=== PATIENT | female | born 1985 | race Caucasian/White ===

== ENCOUNTER → 2021-03-15 08:31 | Outpatient (BNVA) | payer OTHER, SELFPAY | PROVIDERS: Visit Provider Internal Medicine ==

== ENCOUNTER 2021-05-03 13:21 | Outpatient (REF) | payer OTHER, SELFPAY ==
--- NOTE | ~2021-05-03 | US_ITS ---
EXAMINATION: US THYROID CLINICAL INFORMATION: Nontoxic multinodular goiter. COMPARISON: Ultrasound thyroid soft tissues neck 12/31/2018 and 11/26/2016. TECHNIQUE: Linear transducer grayscale and color Doppler examination with attention to the region of the thyroid. FINDINGS: SIZE: Measurements of the thyroid lobes and nodules are given in sagittal, anteroposterior and transverse dimensions respectively. Right Thyroid Lobe: 5.2 x 0.95 x 1.8 cm, volume 4.5 mL. Previously 5.7 x 0.9 x 1.5 cm, volume 4.0 mL. Parenchyma: The gland echotexture is homogeneous. Thyroid vascularity is normal. Left Thyroid Lobe: 4.5 x 1.0 x 1.3 cm, volume 3.0 mL. Previously 4.8 x 0.9 x 1.3 cm, volume 2.9 mL. Parenchyma: The gland echotexture is homogeneous. Thyroid vascularity is normal. Isthmus: 0.15 cm in maximum AP dimension. Previously 0.15 cm. Estimated total number of nodules greater than or equal to 1 cm: 0. There are multiple colloid cyst. The largest colloid cyst is measured. 1. Location: Right lower pole. Size: 0.53 x 0.44 x 0.31 cm, volume 0.04 mL. Previously: 0.51 x 0.35 x 0.37 cm, volume 0.03 mL. Nodule characteristics: Composition: Cystic(0). ACR TI-RADS total points: 0 ACR TI-RADS category: 1 Significant change in size (>/= 20% in 2 dimensions and minimal increase of 2 mm or 50% or greater increase in volume): Change in features: Change in ACR TI-RADS risk category: 2. Location: Left upper pole. Size: 0.81 x 0.71 x 0.76 cm, volume 0.23 mL. Previously: 0.69 x 0.5 x 0.71 cm, volume 0.13 mL. Nodule characteristics: Composition: Solid/almost completely solid (2). Echogenicity: Isoechoic (1). Shape: Not taller than wide (0). Margins: Smooth (0). Echogenic Foci: None (0). ACR TI-RADS total points: 3 ACR TI-RADS category: 3 Significant change in size (>/= 20% in 2 dimensions and minimal increase of 2 mm or 50% or greater increase in volume): Change in features: Change in ACR TI-RADS risk category: 3. Location: Left lower pole. Size: 0.32 x 0.27 x 0.39 cm, volume 0.02 mL. Previously: 0.29 x 0.22 x 0.25 cm, volume 0.01 mL. Nodule characteristics: Composition: Solid/almost completely solid (2). Echogenicity: Hypoechoic (2). Shape: Not taller than wide (0). Margins: Smooth (0). Echogenic Foci: None (0). ACR TI-RADS total points: 4 ACR TI-RADS category: 4 Significant change in size (>/= 20% in 2 dimensions and minimal increase of 2 mm or 50% or greater increase in volume): Change in features: Change in ACR TI-RADS risk category: NODES: No lymphadenopathy is seen in the tissue surrounding the thyroid gland. US/US thyroid IMPRESSION: Normal-size thyroid gland. Multiple small cystic and solid nodules not appreciably changed. ACR TI-RADS RECOMMENDATION REFERENCE: Ultrasound-guided fine-needle aspiration, followup ultrasound, no further follow up. * TR1 (0 point) and TR 2 (2 points): No FNA or follow up * TR3 (3 points): FNA if more than or equal to 2.5 cm in maximum dimension, followup ultrasound in 1, 3 and 5 years if 1.5 to 2.4 cm in maximum dimension. * TR4 (4-6 points): FNA if more than or equal to 1.5 cm in maximum dimension, followup ultrasound in 1, 2, 3 and 5 years if 1 to 1.4 cm in maximum dimension. * TR5 (more than or equal to 7 points): FNA if more than or equal to 1 cm in maximum dimension, followup ultrasound every year for 5 years if 0.5 to 0.9 cm in maximum dimension. * TR3, TR4 or TR5 nodules that are below the size threshold for follow up receive no follow up.
[2021-05-03 15:35] LABS: Free T4 (Free Thyroxine) 0.82 ng/dL (0.71-1.85); Thyroid Stimulating Hormone 2.01 uIU/mL (0.32-4.0)
== END 2021-05-03 13:22 | disposition home or self-care (01) ==
LOC: HO.US 13:21
PROVIDERS: Visit Provider Internal Medicine
DX: E04.2 Nontoxic multinodular goiter (principal); E55.9 Vitamin D deficiency, unspecified
CPT/HCPCS: 36415; 76536; 82306; 84439; 84443

== ENCOUNTER 2021-07-10 08:45 | Outpatient (RCR) | payer OTHER, SELFPAY ==
[2021-06-08 13:07] VITALS: BMI 23.0
--- NOTE | 2021-06-08 13:28 | PC.ADMIT ---
Patient is a 35 year old female who self referred to the PHP program on the advice of her former prescriber d/t an increase in depression symptoms with passive SI and anxiety with panic attacks. Patient denied plan or intent to harm/kill self. 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 Patient described debilitating anxiety attacks which have increased over a month ago which interfere with work and activities of daily living including difficulty leaving the house to do errands. Patient reports decreased sleep often waking multiple times a night and decrease in appetite r/t anxiety. Patient described experiencing episodes of tachycardia, sweating, shaking, numbness in hands and feet, tremulousness, and SOB with feeling light headed. Patient also suffers from ruminating thoughts about the, what if's . She is often fatiqued and naps during the day as a result. Not able to function in her day to day life. Patient is alert and oriented x4. Calm and cooperative. Presents with depressed mood anxious affect. Denied SI. Medications reconciled with patient and patient's pharmacy. Patient reported taking medications as prescribed however stated she is taking cutting the Clonazepam into quarters taking 0.25 mg TID instead of taking prescription 1 mg BID prn. Katrin Peng Np prescriber aware. Patient also did not take xanax that was prescribed in December 2020 as she did not want to take 2 benzodiazapines however patient stated she spoke to Katrin the prescriber and she wants patient to start taking. Patient reports she has a full prescription of xanax #30 tabs.
--- NOTE | 2021-06-08 16:17 | PC.NURSE ---
Case opened in treatment team
--- NOTE | 2021-06-08 16:26 | HO.PS.ADMBH ---
[facility] Date of Service: 06/08/21 Chief Complaint: Panic D/o, Depression, Generalized Anxiety D/o Sources of Information: patient interviewed, chart reviewed and crisis/core team assessment reviewed [facility] Guardianship: No Medical Problems Affecting Mental Status: No Narrative: Ms. Arguelles is a 35-year-old female, self-referred to [facility] for worsening mood dysregulation, depression, anxiety. Client reports feeling helpless, hopeless. She reports that she has a longstanding history of anxiety, depression, panic disorder. She reports that she has had escalating symptoms over the past 1 and half months. She states that she has been unable to eat or moved, go to work, attend to ADLs. Describes experiencing frequent panic attacks, dissociative episodes. Denies any type of thought of harm to self or others, no SI. Client was raised by both parents, has a younger brother. Describes family as supportive. Met all developmental milestones as expected, was in a gifted program throughout school. Obtained GED, after dropping out due to anxiety and depression. Received bachelor's at [employer]. 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 Client reports that she began experiencing symptoms of anxiety and depression around age 12. She began treatment at that time, with a therapist and a psychiatric provider. She states that she had been placed on psychiatric medications but that her mother later took her off the meds due to side effects. She denies any periods of time during her life where she has experienced symptoms of jena or hypomania. She does report that she has had alternate periods of time in her life where she requires medication and therapy, and then is able to function well for a long time without either. She states though as she ages, she is in noticing more frequent episodes where she requires medication and therapy. Past medication trials include Effexor, zyprexa, Viibryd, Zoloft. She is hoping to gain healthy coping skills while in [facility], and a learn how to apply them directly to her daily life. Past Psychiatric History: [facility] 2006 Wing Has current providers at [facility] in [place]. Medical Evaluation Reviewed: No (none available at this time) [facility] Medical History Multinodular thyroid Vitamin D deficiency Narrative: Reports thyroid is being monitored medically. Surgical History No pertinent past surgical history Family History: Maternal grandfather: anxiety, PTSD Maternal uncle: anxiety Paternal grandfather: alcohol use disorder No suicidality in family. Social History: , works as EMT. Substance History: Reports use of CBD, with no THC. Remote history of drinking, reports was never problematic, last drink 3 years ago. Trauma History: Reports that she and therapist have discussed panic attacks as being traumatic. Does not report any other trauma history at this time. Diagnostics Vital Signs (24Hr): Body Mass Index 23.0 Meds/Allergies Allergies Allergies Allergy/AdvReac Type Severity Reaction Status Date / Time No Known Allergies Allergy Verified 03/15/21 09:21 Mental Status Exam Mental Status Exam Narrative: Well-developed, well-nourished female, in NAD. Appropriate grooming, appropriately dressed. Sitting up, fully attentive and participating during interview. No involuntary movements noted, motor activity calm, posture within normal limits. Ambulation not observed. Patient Appearance: Well Grooomed and Appropriate Patient Orientation: Person, Place, Time and Situation Level of Consciousness: Awake, Appropriate and Alert Patient Behavior: Appropriate, Cooperative, Anxious and Good Eye Contact Mood Description: Appropriate and Anxious Affect Description: Appropriate, Depressed and Anxious Patient Cognition Impaired: No Ability to Follow Directions: Excellent Speech Pattern: Clear, Appropriate, Spontaneous Speech and Coherent Memory Description: Intact Hallucinations: None Delusions: Not Present Perceptual Disturbances: Depersonalization Thought Process: Intact and Rumination (focused on anxiety symptoms, impending doom/panic attacks) Thought Content: positive for Intact, positive for Goal Oriented and positive for Linear Depressive Symptoms: Increased Anxiety, Difficulty Sleeping, Crying Spells, Loss of Int. in Activity, Hopelessness, Unhappiness, Increased Fatigue, Low Self Esteem, Loss of Energy and Difficulty Concentrating Judgement: Fair Telehealth Telehealth Location of provider rendering services: practice address Location of patient: address on file Patient Identification confirmed using: Name, : Yes Telehealth method: video Patient verbally consented to treatment: Yes Patient verbally consented to billing insurance company: Yes Patient informed of any privacy concerns related to visit: Yes Time spent with patient (mins): 45 Assessment & Plan Assessment & Plan (1) Major depressive disorder, recurrent severe without psychotic features: Status: Acute Code(s): F33.2 - Major depressive disorder, recurrent severe without psychotic features Assessment and Plan: Client reports she is currently taking Lexapro 10 mg. Reports that she had tried a higher dose, but that it made her feel more anxiety. States she is not sure she really gave medication a chance, or if she focused on side effects as part of her anxiety. She reports she is taking Lamictal 75 mg. Reports that was increased to 100 mg, and that she took for 4 days, approximately 3 months ago. She states that she did not like the effect, and that she dropped down to 75 mg daily. A discussion was held regarding medications and therapeutic doses. She is willing at this time to try a small increase of Lexapro. (2) YULI (generalized anxiety disorder): Status: Acute Code(s): F41.1 - Generalized anxiety disorder Assessment and Plan: Client receives Klonopin with positive affect for anxiety. She also has a p.r.n. Xanax, which she has not used in several months. We discussed using this short-term, so as to combat the initial feelings of anxiety that she experiences when increasing medication doses. She stated that she was willing to try this. (3) Panic disorder: Status: Acute Code(s): F41.0 - Panic disorder [episodic paroxysmal anxiety] Assessment and Plan: Client reports that she continues to experience panic disorder, but feels that being in groups today was helpful, as she was able to hear other people describes situations where as she now realizes that she is not alone in struggling with these issues. Assessment and Plan: 1. Increase Lexapro to 12.5 mg daily. 2. Continue other medications as prescribed. 3. Follow-up with client as per protocol. Patient educated on: diagnosis, medication risk/benefits and therapeutic strategies Informed Consent: understands Reason for continued partial hosp. stay Substantial Risk for: inability to function and med/psych decompensation Certification I certify that partial hospital treatment is medically necessary due to the symptoms and problems resulting from the patient's mental illness and the failure to treat the patient at the partial hospital level of care would likely result in the patient requiring inpatient psychiatric care which could not be prevented at a less intensive level of care.
--- NOTE | 2021-06-13 13:49 | HO.PHPPROGNO ---
Subjective Subjective Date of Service: 06/13/21 Reason For Visit: Panic D/o, Depression, Generalized Anxiety D/o Interim History: Patient seen and discussed with team. Patient evaluated this morning and upon interview she reports on the increased lexapro she felt drunk however utilized xanax PRN and says it knocked me out. She wants to continue on trial of increased lexapro. Reports she has zero energy, zero motivation. Says she feels like crying, taking a shower is impossible. Discussed OCD urges to clean but has feelings of shame and guilt that she is not able to due to avolition and anhedonia. Pt reports she feels so hopeless about everything, stuck, and worries nothing is going is gonna work for her depression. Reports low activity level, doing nothing, can barely leave my house. Says her moods are up and down throughout the day. Feels CBD has been very helpful for stress management. Reports low appetite, has to force myself to eat, feels a knot in my stomach 11/03. Per Suha, due to anxiety I live in my head 99 percent of time, I'm never present. Pt did well with articulating her sx of anxiety and depression. She is insightful but has difficulty accessing her coping skills when she is feeling distressed. She endorses vegetative sx of depression. Denies SI and says she feels safe. Has been participating in group. Medication Compliance: Yes Side effects from medications: No Attending Groups: Yes Review of Systems Acute medical concerns: No Medical Review of Systems: unchanged Mental Status Exam Mental Status Exam Narrative: Well-developed, well-nourished female, in NAD.? Appropriate grooming, appropriately dressed.? Sitting up, fully attentive and participating during interview.? No involuntary movements noted, motor activity calm, posture within normal limits.? Ambulation not observed. Patient Appearance:?Well Grooomed and Appropriate Patient Orientation:?Person, Place, Time and Situation Level of Consciousness:?Awake, Appropriate and Alert Patient Behavior:?Appropriate, Cooperative, Anxious and Good Eye Contact Mood Description:?Appropriate and Anxious Affect Description:?Appropriate, Depressed and Anxious Patient Cognition Impaired:?No Ability to Follow Directions:?Excellent Speech Pattern:?Clear, Appropriate, Spontaneous Speech and Coherent Memory Description:?Intact Hallucinations:?None Delusions:?Not Present Perceptual Disturbances:?Depersonalization Thought Process:?Intact and Rumination (focused on anxiety symptoms, impending doom/panic attacks) Thought Content:?positive for Intact, positive for Goal Oriented and positive for Linear Depressive Symptoms:?Increased Anxiety, Difficulty Sleeping, Crying Spells, Loss of Int. in Activity, Hopelessness, Unhappiness, Increased Fatigue, Low Self Esteem, Loss of Energy and Difficulty Concentrating Judgement:?Fair Diagnostics Vital Signs (24Hr): Body Mass Index 23.0 Assessment & Plan Assessment & Plan (1) Major depressive disorder, recurrent severe without psychotic features: Status: Acute Code(s): F33.2 - Major depressive disorder, recurrent severe without psychotic features (2) YULI (generalized anxiety disorder): Status: Acute Code(s): F41.1 - Generalized anxiety disorder (3) Panic disorder: Status: Acute Code(s): F41.0 - Panic disorder [episodic paroxysmal anxiety] Assessment and Plan: Will continue on increased lexapro dose of 12.5 mg to target sx of depression and anxiety. Will trial risperdal 0.25 mg BID to target perseverative thinking, OCD features, mood lability, as atypical antipsychotics can be useful for treatment refractory anxiety sx and mood stability and risperdal may help with low appetite and is less sedating. Reviewed risks and benefits with pt including increased prolactin level and metbaolic SE and QTc prolongation. Monitor response to medications. Patient seen. Chart reviewed. Certification I certify that partial hospital treatment is medically necessary due to the symptoms and problems resulting from the patient's mental illness and the failure to treat the patient at the partial hospital level of care would likely result in the patient requiring inpatient psychiatric care which could not be prevented at a less intensive level of care. I spent minutes with the patient and/or on the patient floor today, greater than?50% of which was spent counseling/coordinating care. Discharge Plan Discharge Attending provider: Cole Conteh Medications: New escitalopram oxalate [Lexapro] 5 mg tablet 5 mg PO DAILY Qty: 7 RF: 0 risperidone [Risperdal] 0.5 mg tablet 0.25 mg PO BID Qty: 14 RF: 0 No Action lamotrigine 150 mg Tablet 75 mg PO BEDTIME RF: 0 clonazepam 1 mg tablet 1 mg PO BID PRN (Reason: Anxiety) RF: 0 escitalopram oxalate 10 mg tablet 10 mg PO BEDTIME RF: 0 alprazolam 0.5 mg tablet 0.5 mg PO DAILY PRN (Reason: Anxiety) RF: 0
--- NOTE | 2021-06-14 16:08 | HO.PHPPROGNO ---
Subjective Subjective Date of Service: 06/14/21 Reason For Visit: Panic D/o, Depression, Generalized Anxiety D/o Guardianship: No Medical Problems Affecting Mental Status: No Interim History: Suha reports that the increase in Lexapro ?has not really done anything ?. She reports that prescriber yesterday recommended starting Risperdal, but that she is too fearful to begin this medication, as she is concerned about side effects. She then explained that she is afraid of starting anything new. Did consider yesterday coming to ED for crisis evaluation for possible inpatient level of care, today does not believe she needs this at this time. Denies any type of SI, HI, AH, VH. Would like to have medication change at this time. Medication Compliance: Intermittent Side effects from medications: No Attending Groups: Yes Review of Systems Acute medical concerns: No Medical Review of Systems: unchanged Review of Systems Review of Systems Yes all other systems are reviewed and are negative Mental Status Exam Mental Status Exam Narrative: Well-developed, well-nourished female, in NAD. Fully alert and oriented x4. Speech clear, normal rate, volume, rhythm. Well groomed, appropriately dressed. No involuntary movements noted, motor activity calm, posture within normal limits. Manner and behavior were calm, cooperative. Anxious mood and affect, tearful at times. Thought process associations goal directed. Thought content was normal although ruminating, linear, future oriented. No evidence of delusional thoughts or hallucinations, did not appear to be responding to any type of internal stimuli. Cognition and memory appear intact. Denies any type of thought of harm to self or others. Judgment and insight fair. Ambulation not observed. Diagnostics Vital Signs (24Hr): Body Mass Index 23.0 Assessment & Plan Assessment & Plan (1) YULI (generalized anxiety disorder): Status: Acute Code(s): F41.1 - Generalized anxiety disorder Assessment and Plan: Client unwilling to take risperidone at this time. States she is not opposed to inpatient, but that she would prefer to try a med change prior to resorting to an inpatient level of care stay. States she does not feel the Lexapro is working, even with the increased dose. Would prefer to return to Zoloft. Discussed medication switch, risks/benefits, potential side effects. (2) Major depressive disorder, recurrent severe without psychotic features: Status: Acute Code(s): F33.2 - Major depressive disorder, recurrent severe without psychotic features Assessment and Plan: Client does report that she continues with depressive symptoms, mood dysregulation. She states she believes a lot of her symptoms currently are stemming from being isolated. Discussed increase Lamictal to 100 mg daily x2 weeks. She was in agreement with this plan. Denies any type of thoughts of harm to self or others, no safety concern at this time. (3) Panic disorder: Status: Acute Code(s): F41.0 - Panic disorder [episodic paroxysmal anxiety] Assessment and Plan: 1. Discontinue risperidone. 2. Discontinue Lexapro. 3. Start sertraline 100 mg daily. 4. Increase Lamictal to 100 mg daily times 14 days. 5. Follow-up as per protocol. Patient educated on: diagnosis, medication risk/benefits and therapeutic strategies Informed Consent: understands Reason for contiued partial hosp. stay Substantial Risk for: inability to function, rapid decompensation and med/psych decompensation Certification I certify that partial hospital treatment is medically necessary due to the symptoms and problems resulting from the patient's mental illness and the failure to treat the patient at the partial hospital level of care would likely result in the patient requiring inpatient psychiatric care which could not be prevented at a less intensive level of care. I spent minutes with the patient and/or on the patient floor today, greater than?50% of which was spent counseling/coordinating care. Discharge Plan Discharge Attending provider: Cole Conteh Medications: New sertraline [Zoloft] 100 mg tablet 100 mg PO DAILY 14 Days Qty: 14 RF: 0 lamotrigine [Lamictal] 25 mg tablet 25 mg PO DAILY 14 Days Qty: 14 RF: 0 Discontinued escitalopram oxalate 10 mg tablet 10 mg PO BEDTIME RF: 0 No Action lamotrigine 150 mg Tablet 75 mg PO BEDTIME RF: 0 clonazepam 1 mg tablet 1 mg PO BID PRN (Reason: Anxiety) RF: 0 alprazolam 0.5 mg tablet 0.5 mg PO DAILY PRN (Reason: Anxiety) RF: 0 Telehealth Telehealth Location of provider rendering services: practice address Location of patient: address on file Patient Identification confirmed using: Name, : Yes Telehealth method: video Patient verbally consented to treatment: Yes Patient verbally consented to billing insurance company: Yes Patient informed of any privacy concerns related to visit: Yes Time spent with patient (mins): 20
--- NOTE | 2021-06-20 15:40 | HO.PHPPROGNO ---
Subjective Subjective Date of Service: 06/20/21 Reason For Visit: Panic D/o, Depression, Generalized Anxiety D/o Interim History: I evaluated the pt this morning and upon interview she reports she has been on 100 mg of zoloft since last session and that I know it doesnt work that fast, but she is feeling better, thinks its more because i feel like i have a direction now. She continues to endorse anxious, obsessive thoughts, worries about feeling terrible again despite feeling better. Has benefited from group therapy, finds it comforting to know there are other people struggling as much as me and likes having structure/ routine. Still has difficulty falling asleep, stays up watching tv/ looking at phone. Energy is better. Wants to be in a better head space prior to starting risperdal. Discussed DBT therapy, as she says she wants to be able to feel my feelings but has hx of avoidant attachment/ coping strategies and withdrawal.? Mental Status Exam Mental Status Exam Narrative: Well-developed, well-nourished female, in NAD.? Fully alert and oriented x4.? Speech clear, normal rate, volume, rhythm. ? Well groomed, appropriately dressed.? No involuntary movements noted, motor activity calm, posture within normal limits.? Manner and? behavior were calm, cooperative.? Mood is better, affect is anxious.? Thought process associations goal directed.? Thought content was normal although ruminating, linear, future oriented.? No evidence of delusional thoughts or hallucinations, did not appear to be responding to any type of internal stimuli.? Cognition and memory appear intact.? Denies any type of thought of harm to self or others.? Judgment and insight fair.? Ambulation not observed. Diagnostics Vital Signs (24Hr): Body Mass Index 23.0 Assessment & Plan Assessment & Plan (1) Major depressive disorder, recurrent severe without psychotic features: Status: Acute Code(s): F33.2 - Major depressive disorder, recurrent severe without psychotic features Assessment and Plan: Client reports improvement in depressive sx on zoloft, may be placebo, denies activating SE. Will increase Lamictal to 100 mg daily x2 weeks, as she has not done this yet, will monitor for rash/ SJS. Denies any type of thoughts of harm to self or others, no safety concern at this time. (2) YULI (generalized anxiety disorder): Status: Acute Code(s): F41.1 - Generalized anxiety disorder Assessment and Plan: Will continue trial on Zoloft.?Discussed trialing risperdal 0.25 mg BID for obsessive thoughts but pt does not want to trial a new medication at this time. Will f/u with OP provider. (3) Panic disorder: Status: Acute Code(s): F41.0 - Panic disorder [episodic paroxysmal anxiety] Assessment and Plan: 1. continue sertraline 100 mg daily. 2. Increase Lamictal to 100 mg daily times 14 days. 3. Follow-up as per protocol. Certification I certify that partial hospital treatment is medically necessary due to the symptoms and problems resulting from the patient's mental illness and the failure to treat the patient at the partial hospital level of care would likely result in the patient requiring inpatient psychiatric care which could not be prevented at a less intensive level of care. I spent minutes with the patient and/or on the patient floor today, greater than?50% of which was spent counseling/coordinating care. Discharge Plan Discharge Attending provider: Cole Conteh Medications: New sertraline [Zoloft] 100 mg tablet 100 mg PO DAILY 14 Days Qty: 14 RF: 0 lamotrigine [Lamictal] 25 mg tablet 25 mg PO DAILY 14 Days Qty: 14 RF: 0 Discontinued escitalopram oxalate 10 mg tablet 10 mg PO BEDTIME RF: 0 No Action lamotrigine 150 mg Tablet 75 mg PO BEDTIME RF: 0 clonazepam 1 mg tablet 1 mg PO BID PRN (Reason: Anxiety) RF: 0 alprazolam 0.5 mg tablet 0.5 mg PO DAILY PRN (Reason: Anxiety) RF: 0
--- NOTE | 2021-06-21 16:32 | PC.NURSE ---
Pt expressed possible interest in a weekly DBT coping skills groups. She is not interested in a group at [facility]. I called FIONA Lew, DBT coordinator at [facility]. They are not taking referrals as the wait list got too big.
--- NOTE | 2021-06-27 14:30 | HO.PHPPROGNO ---
Subjective Subjective Date of Service: 06/27/21 Reason For Visit: Panic D/o, Depression, Generalized Anxiety D/o Interim History: Patient seen and discussed with team. Patient evaluated this morning and upon interview she reports she has been feeling worse since increasing lamictal to 100 mg. She had been taking 87.5 total and was feeling fine, no side effects, but last night took 100 mg and woke up this morning and feels she has a mental block. Also reports blurred vision, increased anxiety, and feeling shaky. She says since then she was able to utilize breathing and therapeutic tools to alleviate anxiety sx, however continues to feel blurred vision and shaky. Denies issues with blood sugar and says her sleep has been good. Has hx of med sensitivity and in the past was unable to tolerate lamictal dose increase to 100 mg in OP setting. Pt is still interested in DBT. Per Suha, she was feeling a lot better than i had been on the most recent med changes prior to lamictal going up to 100 mg. Says she has not had any real lows and her anxiety is back to baseline. She currently feels safe. Medication Compliance: Yes Side effects from medications: Yes Attending Groups: Yes Review of Systems Acute medical concerns: No Medical Review of Systems: unchanged Mental Status Exam Mental Status Exam Narrative: Well-developed, well-nourished female, in NAD.? Fully alert and oriented x4.? Speech clear, normal rate, volume, rhythm. ? Well groomed, appropriately dressed.? No involuntary movements noted, motor activity calm, posture within normal limits.? Manner and? behavior were calm, cooperative.? Mood is worried, affect is anxious.? Thought process associations goal directed.? Thought content was normal although ruminating, linear, future oriented.? No evidence of delusional thoughts or hallucinations, did not appear to be responding to any type of internal stimuli.? Cognition and memory appear intact.? Denies any type of thought of harm to self or others.? Judgment and insight fair.? Ambulation not observed. Diagnostics Vital Signs (24Hr): Body Mass Index 23.0 Assessment & Plan Assessment & Plan (1) Major depressive disorder, recurrent severe without psychotic features: Status: Acute Code(s): F33.2 - Major depressive disorder, recurrent severe without psychotic features Assessment and Plan: Client reports improvement in depressive sx on zoloft 100 mg. Reports SE on Lamictal to 100 mg, denies rash/ SJS but has noticed blurred vision and feeling shaky. Would like to lower dose back to 87.5 mg due to reported benefit at this dose. Denies any type of thoughts of harm to self or others, no safety concern at this time. (2) YULI (generalized anxiety disorder): Status: Acute Code(s): F41.1 - Generalized anxiety disorder Assessment and Plan: Will continue trial on Zoloft. Discussed trialing risperdal 0.25 mg BID for obsessive thoughts but pt does not want to trial a new medication at this time. Will f/u with OP provider. (3) Panic disorder: Status: Acute Code(s): F41.0 - Panic disorder [episodic paroxysmal anxiety] (4) Vitamin D deficiency: Status: Acute Code(s): E55.9 - Vitamin D deficiency, unspecified (5) Multinodular thyroid: Status: Acute Code(s): E04.2 - Nontoxic multinodular goiter Assessment and Plan: 1. continue sertraline 100 mg daily. 2. Decrease Lamictal to 87.5 mg daily. 3. Follow-up as per protocol. Patient educated on: medication risk/benefits and therapeutic strategies Certification I certify that partial hospital treatment is medically necessary due to the symptoms and problems resulting from the patient's mental illness and the failure to treat the patient at the partial hospital level of care would likely result in the patient requiring inpatient psychiatric care which could not be prevented at a less intensive level of care. I spent minutes with the patient and/or on the patient floor today, greater than?50% of which was spent counseling/coordinating care. Discharge Plan Discharge Attending provider: Cole Conteh Medications: Continued sertraline [Zoloft] 100 mg tablet 100 mg PO DAILY 30 Days Qty: 30 RF: 1 lamotrigine 150 mg Tablet 75 mg PO BEDTIME 30 Days Qty: 15 RF: 1 Changed lamotrigine [Lamictal] 25 mg tablet 12.5 mg PO DAILY 30 Days Qty: 15 RF: 1 Discontinued escitalopram oxalate 10 mg tablet 10 mg PO BEDTIME RF: 0 No Action clonazepam 1 mg tablet 1 mg PO BID PRN (Reason: Anxiety) RF: 0 alprazolam 0.5 mg tablet 0.5 mg PO DAILY PRN (Reason: Anxiety) RF: 0
--- NOTE | 2021-07-03 16:01 | PC.NURSE ---
after inquiring about several more DBT programs (Jasmin Uriarte, [facility] [place]) and finding no one accepting new clients, I spoke to pt and she has reconsidered DBT at [facility]. Mavis Mccarthy said they are accepting clients. I emailed Mavis Mccarthy and sent a referral form. I then called and spoke to pt. She feels very much unable to return to work due to symptoms and is quite upset about this. She is concerned about daily structure. We discussed [facility]'s day Treatment program (or whatever it is currently called - it's one group per day). Pt is interested and I said I would place a referral if possible.
--- NOTE | 2021-07-04 15:06 | PC.NURSE ---
I called and MILLY Sylvester at [facility]s Day Treatment program asking to refer pt.
--- NOTE | 2021-07-04 15:06 | PC.NURSE ---
As I haven't heard back from Nga, I called and spoke to Central Registration at [facility]. I was informed that they are not currently accepting clients in their program. I also emailed Angela Salazar who works in day treatment at [facility] to make sure this is true (as its no longer called Day Treatment)
--- NOTE | 2021-07-05 13:33 | HO.PHPPROGNO ---
Subjective Subjective Date of Service: 07/05/21 Reason For Visit: Panic D/o, Depression, Generalized Anxiety D/o Guardianship: No Medical Problems Affecting Mental Status: No Interim History: Suha reports feeling that today is actually pretty good . Reports that overall she feels her depressive symptoms have improved since she began PHP. Reports however that her anxiety symptoms have not improved. Reports she has not been taking the p.r.n. Xanax, as she feels it makes her too tired. Reports finding groups helpful. Denies any thought of harm to self or others, no safety concern at this time. Medication Compliance: Intermittent Side effects from medications: Yes (xanax, feeling tired.) Attending Groups: Yes Review of Systems Acute medical concerns: No Medical Review of Systems: unchanged Mental Status Exam Mental Status Exam Narrative: Well-developed, well-nourished female, in NAD.? Fully alert and oriented x4.? Speech clear, normal rate, volume, rhythm. ? Well groomed, appropriately dressed.? No involuntary movements noted, motor activity calm, posture within normal limits.? Manner and? behavior were calm, cooperative.? Mood is decent today, affect is anxious.? Thought process associations goal directed.? Thought content was normal although ruminating regarding medications and side effects, ongoing anxiety, work, linear, future oriented.? No evidence of delusional thoughts or hallucinations, did not appear to be responding to any type of internal stimuli.? Denies any episodes of dissacociation, although reports vivid dreams. Cognition and memory appear intact.? Denies any type of thought of harm to self or others.? Judgment and insight fair.? Ambulation not observed. Diagnostics Vital Signs (24Hr): Body Mass Index 23.0 Assessment & Plan Assessment & Plan (1) YULI (generalized anxiety disorder): Status: Acute Code(s): F41.1 - Generalized anxiety disorder Assessment and Plan: The client reports feeling little to no improvement regarding levels of anxiety. Reports she is taking Klonopin as prescribed, but is not taking the Xanax, as it makes her tired. Discussed cutting tab in half, and then in quarters. She states she is already doing this but that it still makes her feel too tired. Discussed alternative ways to help reduce anxiety. She reports she feels the ongoing anxious feelings are due to program winding down, and that she is focused on concern that she will not be able to return to work and that she will lack structure in her day, which will lead to further anxiety and depressive symptoms. Reframing thoughts, projection discussed. (2) Major depressive disorder, recurrent severe without psychotic features: Status: Acute Code(s): F33.2 - Major depressive disorder, recurrent severe without psychotic features Assessment and Plan: Client reports feeling better since lowering Lamictal dose from 100 mg to 87.5. Feels that this is the appropriate dose and plans to remain on it for the time being. Reports that she continues taking Zoloft 100 mg, satisfied with this dose at this time. (3) Panic disorder: Status: Acute Code(s): F41.0 - Panic disorder [episodic paroxysmal anxiety] Assessment and Plan: 1. Client encouraged to utilize p.r.n. Xanax for episodes of anxiety. 2. Continue all medications as prescribed. 3. Follow-up as per protocol. Patient educated on: diagnosis, medication risk/benefits and therapeutic strategies Informed Consent: understands Reason for contiued partial hosp. stay Substantial Risk for: inability to function and med/psych decompensation Certification I certify that partial hospital treatment is medically necessary due to the symptoms and problems resulting from the patient's mental illness and the failure to treat the patient at the partial hospital level of care would likely result in the patient requiring inpatient psychiatric care which could not be prevented at a less intensive level of care. I spent minutes with the patient and/or on the patient floor today, greater than?50% of which was spent counseling/coordinating care. Discharge Plan Discharge Attending provider: Cole Conteh Medications: Continued sertraline [Zoloft] 100 mg tablet 100 mg PO DAILY 30 Days Qty: 30 RF: 1 lamotrigine 150 mg Tablet 75 mg PO BEDTIME 30 Days Qty: 15 RF: 1 Changed lamotrigine [Lamictal] 25 mg tablet 12.5 mg PO DAILY 30 Days Qty: 15 RF: 1 Discontinued escitalopram oxalate 10 mg tablet 10 mg PO BEDTIME RF: 0 No Action clonazepam 1 mg tablet 1 mg PO BID PRN (Reason: Anxiety) RF: 0 alprazolam 0.5 mg tablet 0.5 mg PO DAILY PRN (Reason: Anxiety) RF: 0 Telehealth Telehealth Location of provider rendering services: practice address Location of patient: address on file Patient Identification confirmed using: Name, : Yes Telehealth method: video Patient verbally consented to treatment: Yes Patient verbally consented to billing insurance company: Yes Patient informed of any privacy concerns related to visit: Yes Time spent with patient (mins): 15
--- NOTE | 2021-07-05 16:18 | PC.NURSE ---
I received a message back from Nga at [facility] and called and spoke with her. The program that was Day Treatment is now called the [place] [facility] . Nga said they will take new clients, despite what central registration said. She saw that Suha is already scheduled to see the med provider by the name of Gennaro, and that she was referred by Charo Strickland APRN, Suha's former med provider. Nga said Suha will need an assessment for services in able to start the process to attend the comprehensive group program. I called and spoke to Suha, and she was pleased. I also left a message for Charo Strickland APRN, asking if I ought to put in a referral to [facility] for Suha, as Suha indicated that Charo has a specific therapist in mind for her to see and I didn't want to disrupt that process.
--- NOTE | 2021-07-10 14:42 | PC.NURSE ---
Addendum entered by Mitra Mendoza 07/10/21 14:48: Melani Torres's number is [phone] Original Note: I called Central Intake, and they were not able to place a referral for Pt to attend the [facility] group program, but said they would call me back and let me know when this can happen. I was told that the program is new to them, and that they don't know how the referral process works. I called Melani Torres at [facility], as Charo Strickland APRN said she is the one helping pt to find a DBT therapist. (I also emailed her last and have not heard back). Melani said she will facilitate the referral for pt to get into the [facility] group Treatment Program. She said she would contact staff at [facility] for this, and will coordinate this referral with Pt's referral for DBT.
--- NOTE | 2021-07-10 15:57 | PC.NURSE ---
I called and LM for pt's therapist, Vito Crespo. I informed him of pt's discharge today from [facility].
--- NOTE | 2021-07-11 10:49 | PC.NURSE ---
Discharge Note: Patient was discharged on 07/10/2021. Discharge routine. Patient attended 12 days of PHP and 10 days IOP. Patient in agreement with discharge plan and states understanding including discharge medications. Patient denies SI. Patient has appointment for DBT group on 07/17/21 at [facility]. Intake with med provider on 07/18/21 at [facility]. Appointment with Vito Crespo is pending week of 07/16/21. Melani Torres, senior qa analyst is coordinating a referral for [facility]. Patient reports understanding of discharge appointments. Discharge medication list faxed to PCP at [facility] and Psychopharmacology Prescriber, Tiara Ruiz NP.
== END 2021-07-11 07:14 | disposition home or self-care (01) ==
LOC: HO.PHPA 08:45
PROVIDERS: Visit Provider Psychiatry & Neurology Psychiatry
DX: F33.2 Major depressive disorder, recurrent severe without psychotic features (principal); F41.1 Generalized anxiety disorder; F41.0 Panic disorder [episodic paroxysmal anxiety]; Z79.899 Other long term (current) drug therapy
CPT/HCPCS: 90791; 90853

== ENCOUNTER 2022-03-07 08:57 | Outpatient (REF) | payer OTHER, SELFPAY ==
--- NOTE | ~2022-03-07 | US_ITS ---
EXAMINATION: US THYROID CLINICAL INFORMATION: Nontoxic multinodular goiter. COMPARISON: None TECHNIQUE: Linear transducer grayscale and color Doppler examination with attention to the region of the thyroid. FINDINGS: SIZE: Measurements of the thyroid lobes and nodules are given in sagittal, anteroposterior and transverse dimensions respectively. Right Thyroid Lobe: 5.5 x 1.2 x 1.4 cm, volume 4.9 mL. Previously measured 5.2 x 0.95 x 1.8 cm and volume 4.5 mL. Parenchyma: The gland echotexture is heterogeneous. Thyroid vascularity is normal. Left Thyroid Lobe: 5.0 x 1.1 x 1.1 cm, volume 3.1 mL. Parenchyma: The gland echotexture is heterogeneous. Thyroid vascularity is normal. Previously measured 4.5 x 1.5 x 1.3 cm and volume 3.0 mL Isthmus: 0.21 cm in maximum AP dimension. Previously measured 0.15 cm. Estimated total number of nodules greater than or equal to 1 cm: none. Brush Cutter nodules are described as follows: 1. Location: Right lower pole. Size: 0.55 or 0.50, 0.32 cm, volume 0.05 mL. Previously measured 0.53 x 0.44 x 0.36 cm and volume 0.04 mL. Nodule characteristics: Composition: Cystic(0). Echogenicity: Anechoic (0). Shape: Round Margins: Smooth (0). Echogenic Foci: None (0). ACR TI-RADS total points: 0 ACR TI-RADS category: 1 2. Location: Right upper pole. Size: 0.42 x 0.20 x 0.40 cm, volume 0.2 mL. Not seen previously. Nodule characteristics: Composition: Cystic(0). Echogenicity: Anechoic (0). Shape: Round Margins: Smooth (0). Echogenic Foci: None (0). ACR TI-RADS total points: 0 ACR TI-RADS category: 1 3. Location: Left lower pole. Size: 0.61 x 0.31 x 0.44 cm, volume 0.04 mL. Previously measured 0.32 x 0.27 x 0.40 cm and volume 0.02 mL. Nodule characteristics: Composition: Spongiform (0). Echogenicity: Isoechoic (1). Shape: Round Margins: Smooth (0). Echogenic Foci: None (0). ACR TI-RADS total points: 0 ACR TI-RADS category: 1 4. Location: Lower mid pole. Size: 1.0 x 0.83 x 0.84 cm, volume 0.35 mL. Previously measured 0.81 x 0.71 x 0.76 cm and volume 0.23 mL. Nodule characteristics: Composition: Solid (2). Echogenicity: Hypoechoic Shape: Wider Margins: Smooth (0). Echogenic Foci: None (0). ACR TI-RADS total points: 4 ACR TI-RADS category: 4 NODES: No lymphadenopathy is seen in the tissue surrounding the thyroid gland. US/US thyroid IMPRESSION: Small stable thyroid nodules in a normal-sized thyroid gland. There are cysts visualized in the right lobe. ACR TI-RADS RECOMMENDATION REFERENCE: Ultrasound-guided fine-needle aspiration, followup ultrasound, no further follow up. * TR1 (0 point) and TR 2 (2 points): No FNA or follow up * TR3 (3 points): FNA if more than or equal to 2.5 cm in maximum dimension, followup ultrasound in 1, 3 and 5 years if 1.5 to 2.4 cm in maximum dimension. * TR4 (4-6 points): FNA if more than or equal to 1.5 cm in maximum dimension, followup ultrasound in 1, 2, 3 and 5 years if 1 to 1.4 cm in maximum dimension. * TR5 (more than or equal to 7 points): FNA if more than or equal to 1 cm in maximum dimension, followup ultrasound every year for 5 years if 0.5 to 0.9 cm in maximum dimension. * TR3, TR4 or TR5 nodules that are below the size threshold for follow up receive no follow up.
[2022-03-07 12:17] LABS: Thyroid Stimulating Hormone 3.28 uIU/mL (0.32-4.0); Vitamin D 25-OH Total 39.1 ng/mL (>30)
[2022-03-07 12:21] LABS: Free T4 (Free Thyroxine) 0.86 ng/dL (0.71-1.85)
== END 2022-03-07 08:58 | disposition home or self-care (01) ==
LOC: HO.HMGCX 08:57
PROVIDERS: Visit Provider Internal Medicine
DX: E55.9 Vitamin D deficiency, unspecified (principal); E04.2 Nontoxic multinodular goiter
CPT/HCPCS: 36415; 76536; 82306; 84439; 84443

== ENCOUNTER → 2022-03-14 09:45 | Outpatient (BNVA) | payer OTHER, SELFPAY | PROVIDERS: PCP Physician Assistant; Visit Provider Internal Medicine | DX: E04.2 Nontoxic multinodular goiter (principal); E55.9 Vitamin D deficiency, unspecified | CPT/HCPCS: 99212 ==

== ENCOUNTER 2022-04-18 09:53 | Outpatient (REF) | payer OTHER, SELFPAY ==
--- NOTE | 2022-04-18 10:10 | PM.OP ---
Brief Operative Note Date of Service: 04/18/22 Pre-op diagnosis: Multinodular Thyroid Procedure: EXAMINATION: US THYROID CLINICAL INFORMATION: Multinodular Thyroid COMPARISON: Prior TECHNIQUE: Linear transducer coughlin-scale and color Doppler examination with attention to the region of the thyroid. FINDINGS: SIZE: Measurements of the thyroid lobes and nodules are given in sagittal, anteroposterior and transverse dimensions respectively. Right Thyroid Lobe: 4.9 x 0.9 x 1.9 cm, volume 4.4 mL. Parenchyma: The gland echotexture is hterogenous. Left Thyroid Lobe: 4.6 x 1.2 x 1.3 cm, volume 3.8 mL. Parenchyma: The gland echotexture is heterogenous. Isthmus: 0.3 cm in maximum AP dimension. RIGHT THYROID LOBE: There is 1 nodule. There is a 0.6 x 0.5 cm anechoic and cystic appearing nodule. LEFT THYROID LOBE: There are no nodules. NODES: No lymph nodes were assessed during today's exam. Surgeon: Kajal Charles, DO Was an Payable Manager used for this Procedure?: No Estimated blood loss (mL): 0
== END 2022-04-18 09:54 | disposition home or self-care (01) ==
LOC: HO.US 09:53
PROVIDERS: Visit Provider Internal Medicine
DX: E04.2 Nontoxic multinodular goiter (principal)
CPT/HCPCS: 76536

== ENCOUNTER 2023-07-26 11:20 | Outpatient (REF) | payer OTHER, SELFPAY ==
--- NOTE | ~2023-07-26 | US_ITS ---
EXAMINATION: US THYROID CLINICAL INFORMATION: Nontoxic multinodular goiter. COMPARISON: Ultrasound soft tissue head/neck thyroid dated 03/07/2022 and 05/03/2021. TECHNIQUE: Linear transducer grayscale and color Doppler examination with attention to the region of the thyroid. FINDINGS: SIZE: Measurements of the thyroid lobes and nodules are given in sagittal, anteroposterior and transverse dimensions respectively. Right Thyroid Lobe: 5.4 x 1.4 x 1.7 cm, volume 6.7 mL. Previously 5.5 x 1.2 x 1.4 cm, volume 4.9 mL. Parenchyma: The gland echotexture is homogeneous. Thyroid vascularity is normal. Left Thyroid Lobe: 5.6 x 0.9 x 1.6 cm, volume 4.2 mL. Previously 5.0 x 1.1 x 1.1 cm, volume 3.1 mL. Parenchyma: The gland echotexture is homogeneous. Thyroid vascularity is normal. Isthmus: 0.2 cm in maximum AP dimension. Previously 0.2 cm. Estimated total number of nodules greater than or equal to 1 cm: 1. 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 Location: Left superior. Size: 1.2 x 0.8 x 0.8 cm, volume 0.38 mL. Previously: 1.0 x 0.8 x 0.8 cm, volume 0.35 mL. Nodule characteristics: Composition: Solid (2). Echogenicity: Hypoechoic (2). Shape: Not taller than wide (0). Margins: Ill-defined (0). Echogenic Foci: None (0). ACR TI-RADS total points: 4 Previous: 4 ACR TI-RADS category: 4 Previous: 4 Significant change in size (>/= 20% in 2 dimensions and minimal increase of 2 mm or 50% or greater increase in volume): No Change in features: No Change in ACR TI-RADS risk category: No 2. Location: Left inferior. Size: 0.8 x 0.3 x 0.6 cm, volume 0.08 mL. Previously: 0.6 x 0.3 x 0.4 cm, volume 0.04 mL. Nodule characteristics: Composition: Solid/almost completely solid (2). Echogenicity: Hypoechoic (2). Shape: Not taller than wide (0). Margins: Smooth (0). Echogenic Foci: None (0). ACR TI-RADS total points: 4 Previous: 0 ACR TI-RADS category: 4 Previous: 1 Significant change in size (>/= 20% in 2 dimensions and minimal increase of 2 mm or 50% or greater increase in volume): Yes Change in features: No Change in ACR TI-RADS risk category: No 3. Location: Right mid. Size: 0.5 x 0.2 x 0.3 cm, volume 0.02 mL. Previously: 0.4 x 0.2 x 0.4 cm, volume 0.02 mL. Nodule characteristics: Composition: Cystic(0). ACR TI-RADS total points: 0 Previous: 0 ACR TI-RADS category: 1 Previous: 1 Significant change in size (>/= 20% in 2 dimensions and minimal increase of 2 mm or 50% or greater increase in volume): No Change in features: No Change in ACR TI-RADS risk category: No 4. Location: Right mid. Size: 0.7 x 0.6 x 0.6 cm, volume 0.14 mL. Previously: New since the previous study. Nodule characteristics: Composition: Solid/almost completely solid (2). Echogenicity: Isoechoic (1). Shape: Not taller than wide (0). Margins: Smooth (0). Echogenic Foci: None (0). ACR TI-RADS total points: 3 ACR TI-RADS category: 3 NODES: No lymphadenopathy is seen in the tissue surrounding the thyroid gland. US/US thyroid IMPRESSION: Bilateral thyroid nodules as described. Left upper 1.2 cm TR4 thyroid nodule. Continued surveillance recommended. ACR TI-RADS RECOMMENDATION REFERENCE: Ultrasound-guided fine-needle aspiration, follow up ultrasound, no further followup. * TR1 (0 point) and TR2 (2 points): No FNA or followup * TR3 (3 points): FNA if more than or equal to 2.5 cm in maximum dimension, follow up ultrasound in 1, 3 and 5 years if 1.5 to 2.4 cm in maximum dimension. * TR4 (4-6 points): FNA if more than or equal to 1.5 cm in maximum dimension, follow up ultrasound in 1, 2, 3 and 5 years if 1 to 1.4 cm in maximum dimension. * TR5 (more than or equal to 7 points): FNA if more than or equal to 1 cm in maximum dimension, follow up ultrasound every year for 5 years if 0.5 to 0.9 cm in maximum dimension. * TR3, TR4 or TR5 nodules that are below the size threshold for follow up receive no followup.
== END 2023-07-26 11:21 | disposition home or self-care (01) ==
LOC: HO.HMGCX 11:20
PROVIDERS: PCP Physician Assistant Medical; Visit Provider Internal Medicine Endocrinology, Diabetes & Metabolism
DX: E04.2 Nontoxic multinodular goiter (principal)
CPT/HCPCS: 76536

== ENCOUNTER 2023-11-20 12:31 | Outpatient (REF) | payer OTHER, SELFPAY ==
[2023-11-20 14:14] LABS: Free T4 (Free Thyroxine) 0.73 ng/dL (0.71-1.85); Thyroid Stimulating Hormone 1.71 uIU/mL (0.32-4.0); Vitamin D 25-OH Total 40.6 ng/mL (>30)
== END 2023-11-20 12:32 | disposition home or self-care (01) ==
LOC: HO.10HDL 12:31
PROVIDERS: Visit Provider Internal Medicine Endocrinology, Diabetes & Metabolism
DX: E04.2 Nontoxic multinodular goiter (principal); E55.9 Vitamin D deficiency, unspecified; Z79.899 Other long term (current) drug therapy
CPT/HCPCS: 36415; 82306; 84439; 84443; 99212

== ENCOUNTER 2023-11-20 12:41 | Outpatient (AMB) | payer OTHER, SELFPAY ==
--- NOTE | 2023-11-20 12:43 | MHC.OFFVIS ---
Intake Vital Signs 11/20/23 12:53 Height 5 ft 6.22 in Weight 138 lb 14.259 oz BMI 22.3 BP 104/62 Blood Pressure Location Lt brachial Position Sitting Pulse 69 Pulse Source Pulse Oximeter Intake Visit Reasons: F/U NTMNG Intake Note: Patient present today for NTMNG follow up visit. Last seen by Dr. Lopez on 06/20/22. Pathological Technician Required: No Accompanied by: Self / Same As Patient Allergies No Known Allergies Allergy (Verified 11/20/23 12:56) Medication List - Last Reconciled 11/20/23 by Davy Silverio MD alprazolam 0.5 mg PO DAILY PRN clonazepam 1 mg PO BID PRN ibuprofen 600 mg PO Q6H PRN lamotrigine 75 mg (1/2 x 150 mg) PO BEDTIME 30 days lamotrigine (Lamictal) 12.5 mg (1/2 x 25 mg) PO DAILY 30 days sertraline (Zoloft) 100 mg PO DAILY 30 days HPI HPI Comments History of Present Illness Details 38 YO F with who is seen in F/U for NTMNG. Patient last saw Dr. Lopez 06/20/2022 ?She had prior US which revealed multiple bilateral subcentimeter thyroid nodules. She was previously managed by Dr. Sanchez. Her last visit with him was 12/18/16. She was asked at that time to F/U in 2 years with repeat US as none of her nodules were meeting indication for FNA biopsy. She does report a history of cervical lymphadenopathy with prior FNA of a L cervical lymph node. She reports that cytology was benign. ?Repeat US 02/2022 revealed a 1.0 cm hypoechoic nodule. I repeated the US myself shortly thereafter and there was only a small subcentimeter anechoic cyst, with no FNA being indicated. She is seen today in F/U. ?Currently denies any dysphagia or hoarseness of voice. Denies any symptoms of hyper or hypothyroidism. ?Does have menstrual irregularities since menarche. ?Denies any history of head or neck irradiation. Denies any family history of thyroid cancer. ?Thyroid US: 03/07/2022 Right Thyroid Lobe: 5.5 x 1.2 x 1.4 cm, volume 4.9 mL. Previously measured 5.2 x 0.95 x 1.8 cm and volume 4.5 mL. Parenchyma: The gland echotexture is heterogeneous. Thyroid vascularity is normal. Left Thyroid Lobe: 5.0 x 1.1 x 1.1 cm, volume 3.1 mL. Parenchyma: The gland echotexture is heterogeneous. Thyroid vascularity is normal. Previously measured 4.5 x 1.5 x 1.3 cm and volume 3.0 mL Isthmus: 0.21 cm in maximum AP dimension. Previously measured 0.15 cm. Estimated total number of nodules greater than or equal to 1 cm: none. Truck Farmer nodules are described as follows: 1. Location: Right lower pole. ?? ? Size: 0.55 or 0.50, 0.32 cm, volume 0.05 mL. Previously measured 0.53 x 0.44 x 0.36 cm and volume 0.04 mL. ?? ? Nodule characteristics: ?? ? Composition: Cystic(0). ?? ? Echogenicity: Anechoic (0). ?? ? Shape: Round ?? ? Margins: Smooth (0). ?? ? Echogenic Foci: None (0). ?? ? ACR TI-RADS total points: 0 ?? ? ACR TI-RADS category: 1 2. Location: Right upper pole. ?? ? Size: 0.42 x 0.20 x 0.40 cm, volume 0.2 mL. Not seen previously. ?? ? Nodule characteristics: ?? ? Composition: Cystic(0). ?? ? Echogenicity: Anechoic (0). ?? ? Shape: Round ?? ? Margins: Smooth (0). ?? ? Echogenic Foci: None (0). ?? ? ACR TI-RADS total points: 0 ?? ? ACR TI-RADS category: 1 3. Location: Left lower pole. ?? ? Size: 0.61 x 0.31 x 0.44 cm, volume 0.04 mL. Previously measured 0.32 x 0.27 x 0.40 cm and volume 0.02 mL. ?? ? Nodule characteristics: ?? ? Composition: Spongiform (0). ?? ? Echogenicity: Isoechoic (1). ?? ? Shape: Round ?? ? Margins: Smooth (0). ?? ? Echogenic Foci: None (0). ?? ? ACR TI-RADS total points: 0 ?? ? ACR TI-RADS category: 1 4. Location: Lower mid pole. ?? ? Size: 1.0 x 0.83 x 0.84 cm, volume 0.35 mL. Previously measured 0.81 x 0.71 x 0.76 cm and volume 0.23 mL. ?? ? Nodule characteristics: ?? ? Composition: Solid (2). ?? ? Echogenicity: Hypoechoic ?? ? Shape: Wider ?? ? Margins: Smooth (0). ?? ? Echogenic Foci: None (0). ?? ? ACR TI-RADS total points: 4 ?? ? ACR TI-RADS category: 4 NODES: No lymphadenopathy is seen in the tissue surrounding the thyroid gland. ?Labs: No recent pertinent labs ?Labs: Laboratory Tests 03/07/22 09:24 25-OH Vitamin D To derrell 39.1 TSH 3.28 Free T4 0.86 Recent thyroid ultrasound showed no appreciable change in the nodules . Most with subcentimeter PFSH Medical History Multinodular thyroid Vitamin D deficiency Surgical History No pertinent past surgical history Family History Father Diabetes mellitus HTN (hypertension) Hyperlipidemia Mother Healthy adult Social History Household Members: None Patient Tobacco Use Status: Current everyday Tobacco user Tobacco use type: Cigarette and Smokeless Tobacco Physical Exam Vital Signs: Last Vital Signs Pulse 69 11/20/23 12:53 BP 104/62 11/20/23 12:53 BMI result Body Mass Index 22.3 Const Other: Thyroid gland is normal size weighs about 15 g . There are no palpable nodules Assessment & Plan Assessment & Plan (1) Multinodular thyroid: Code(s): E04.2 - Nontoxic multinodular goiter Plan: This is a 38-year-old white female with a history of multinodular goiter with subcentimeter nodules. She appears to be clinically euthyroid Plan is to check a TSH and a free T4. Assuming above is normal, patient can follow up with the primary care provider who should check repeat thyroid ultrasound about 2-3 years time. If there is any significant change in the size or characteristics of the nodules, the patient referred back to endocrinology Coding Level of Care Code Est Pt Level 3 (49186) Diagnoses Multinodular thyroid E04.2
[2023-11-20 12:53] VITALS: BP 104/62; PULSE 69; BMI 22.3
== END 2023-11-20 13:11 | disposition home or self-care (01) ==
LOC: HO.ENCR 12:41
PROVIDERS: PCP Physician Assistant Medical; Visit Provider Internal Medicine Endocrinology, Diabetes & Metabolism
DX: E04.2 Nontoxic multinodular goiter (principal)
CPT/HCPCS: 99213